=== PATIENT | female | born 1955 | race Caucasian/White ===

== ENCOUNTER 2021-02-18 17:10 | Observation (INO) | payer OTHER ==
[2021-02-18] MEDS ORDERED: ACETAMINOPHEN 500 MG TAB PO PRN (20:34)
[2021-02-18] MEDS ORDERED: carvediloL 3.125 MG TAB PO SCH (21:00)
[2021-02-18] MEDS: CEFTRIAXONE 1 GM/NS 50 ML 1 GM/50 ML BAG IV SCH (21:00)
--- NOTE | 2021-02-18 21:15 | RAD REPORT ---
EXAM DESCRIPTION: RAD - Chest Pa And Lat (2 Views) - 02/18/2021 9:09 pm CLINICAL HISTORY: volume depletion COMPARISON: No comparisons FINDINGS: Lines: None. Lungs: No evidence of edema or pneumonia. Pleural: No significant pleural effusions or pneumothorax. Cardiac: The heart size is within normal limits. Bones: No acute fractures. Other: IMPRESSION: No acute cardiopulmonary disease.
[2021-02-18 21:24] LABS: Absolute Lymphocytes (CBC) 2.2 K/uL (0.7-4.9); Basophils % 0.7 % (0-1.3); Lymphocytes % 29.4 % (15.3-44.8); RBC Red Blood Cell Count 3.84 M/uL (3.86-4.86)
[2021-02-18] MEDS ORDERED: CEFTRIAXONE 1000 MG/VIAL ONE (21:37)
[2021-02-18] MEDS ORDERED: NA CHLORIDE 0.9% 100 ML ONE (21:38)
[2021-02-18] MEDS: FAMOTIDINE 20 MG TAB PO SCH (21:40)
[2021-02-18] MEDS: NA CHLORIDE 0.9% 1,000 ML IV SCH (21:42)
[2021-02-18 21:57] LABS: Albumin 3.8 g/dL (3.4-5.0); Bilirubin Total 0.7 mg/dL (0.2-1.0); Magnesium 1.9 mg/dL (1.8-2.4); Phosphorus 3.2 mg/dL (2.5-4.9); Potassium 3.4 mmol/L (3.5-5.1); Protein, Total 7.3 g/dL (6.4-8.2); Thyroid Stimulating Hormone 0.648 uIU/mL (0.360-3.740)
[2021-02-18 22:56] VITALS: BMI 28.5
[2021-02-18] MEDS ORDERED: POTASSIUM CL SA 10 MEQ TAB PO ONE (23:07)
[2021-02-19 04:05] LABS: Potassium 4.2 mmol/L (3.5-5.1)
[2021-02-19 05:25] LABS: Urine Appearance CLEAR (Clear); Urine Bilirubin NEGATIVE (Negative); Urine Blood NEGATIVE (Negative); Urine Color YELLOW (Yellow); Urine Glucose NEGATIVE (Negative); Urine Protein NEGATIVE (Negative); Urine Specific Gravity <=1.005 (1.005-1.030); Urine Urobilinogen 0.2 mg/dL (0.2-1.0)
[2021-02-19 06:34] LABS: Urine Bacteria <20 /HPF (<20); Urine Mucus 1+ /HPF (NONE SEEN); Urine RBC <5 /HPF (NONE SEEN)
[2021-02-19] MEDS ORDERED: INFLUENZA VACCINE (for 6+ mo) 0.5 ML DOSE IMVAC ONE (08:00)
[2021-02-19] MEDS: NA CHLORIDE 0.9% 1,000 ML IV SCH (08:25)
[2021-02-19] MEDS: FAMOTIDINE 20 MG TAB PO SCH (08:28)
[2021-02-19] MEDS ORDERED: ENOXAPARIN 40 MG/0.4 ML SQ SCH (09:00)
[2021-02-19] MEDS ORDERED: carvediloL 3.125 MG TAB PO SCH (09:00)
[2021-02-19] MEDS: CEFTRIAXONE 1 GM/NS 50 ML 1 GM/50 ML BAG IV SCH (09:12)
--- NOTE | 2021-02-19 10:12 | RAD REPORT ---
EXAM DESCRIPTION: US - Abdomen Exam Complete - 02/19/2021 6:31 am CLINICAL HISTORY: Abdominal pain COMPARISON: Renal Ultrasound-Complete dated 10/18/2019 FINDINGS: No aortic aneurysm. The liver has a homogeneous echotexture. Cyst in the right hepatic lobe measuring approximately 3.5 c m with a few thin internal septations. There is increased through transmission. This is consistent wi th a minimally complicated cyst and is benign. The portal vein is patent. The IVC at the level of the liver is unremarkable. No ascites. Cholelithiasis noted. No pericholecystic fluid identified. No gallbladder wall thickening No biliary ductal dilatation. The pancreas was grossly unremarkable. The right kidney measures 9.8 cm normal echotexture. No hydronephrosis. 9 mm right renal cyst. The left kidney measures 8.2 cm with a normal echotexture. No hydronephrosis. No suspicious masses. The spleen is unremarkable. IMPRESSION: Cholelithiasis without sonographic evidence of acute cholecystitis. Benign liver and rig ht kidney cysts.
[2021-02-19 11:42] VITALS: O2SAT 100
[2021-02-19 11:53] VITALS: BP 124/69; TEMP 97.5
[2021-02-19] MEDS ORDERED: PNEUMOCOCCAL VACCINE 0.5 ML IMVAC ONE (13:00)
--- NOTE | 2021-02-19 16:38 | EKG ---
Test Date: 2021-02-18 Test Time: 21:26:14 Office Support Clerk: RT-O MEASUREMENT RESULTS: Intervals: Rate: 78 NE: 144 QRSD: 72 QT: 368 QTc: 419 Pierre: P: 81 NE: 144 QRS: -6 T: 23 INTERPRETIVE STATEMENTS: Normal sinus rhythm Low voltage QRS Possible Anterolateral infarct, age undetermined Abnormal ECG No previous ECG available for comparison Electronically Signed On 02-19-21 16:35:44 CDT by Ferny Casper
--- NOTE | 2021-02-19 16:41 | HP ---
Date of Admission: 02/18/2021 Chief Complaint: Not feeling good. History Of Present Illness: This is a 65-year-old pleasant female patient who came into office yesterday with her daughter and the patient was prescribed amoxicillin and Flonase nasal spray about 2 weeks ago for sinus infection and she came into office yesterday with complaints of ongoing right ear pain and felt like right ear was plugged up with occasional pain in her right ear. Denies any fever. No expectoration. Has some clear nasal discharge and she started to have nausea and vomiting as of 02/16/2021 and by the time I saw her yesterday she had vomited about 6 to 8 times in last 24 hours. Over the weekend, she also had some strong odor to her urine and she was concerned about bladder infection. Denies any dysuria or hematuria. After she was evaluated at the office, urinalysis was done in the office, which came back abnormal indicating urinary tract infection and we did send her urine for culture and started her on empiric antibiotic Levaquin and nausea medication and instruction given to her and her daughter that if she does not feel any better in 24 hours, then to notify me. So today, the patient's daughter contacted office and notified us that the patient was not feeling any better, so she was asked to come back to see me. After she was evaluated, she was admitted to the hospital. Today, she tells me that she has not had any more nausea, vomiting since she saw me yesterday. No new complaints reported by her. She feels very weak, tired and has very poor appetite, in fact today she did not have anything to eat, but had very small amount of liquids. Allergies: TO CODEINE CAUSING HIVES AND NITROFURANTOIN CAUSING HIVES. Review of Systems: Constitutional: As mentioned above. GI: As mentioned above. Genitourinary: As mentioned above. ENT: As mentioned above. All other systems reviewed and negative. Medications: Takes carvedilol 6.25 mg 2 times a day, atorvastatin 20 mg daily in evening, Caltrate Plus D one tablet by mouth daily, vitamin D3 2000 unit daily, famotidine 20 mg 2 times a day and fluticasone nasal spray 1 spray each nostril 2 times a day and Levaquin 500 mg daily. Past Medical History: Significant for vitamin D deficiency, hypertension, hyperlipidemia, gastroesophageal reflux disease. Past Surgical History: Significant for and reconstructive surgery. Family History: Mother has hypertension and diabetes. Sister with breast cancer. Social History: Negative for smoking. Use of alcohol rarely. Physical Examination: VITAL SIGNS: Temperature 98.7, pulse 91, respiratory rate 20, blood pressure 154/87, height 62 inches, weight 156 pounds. General: Awake, alert, oriented, not in distress. The patient appears weaker than normal not in any respiratory distress. HEENT: Head atraumatic, normocephalic. Conjunctivae nonerythematous. Sclerae white. Mouth: Very minimal erythematous changes in the posterior pharynx, unchanged from yesterday. Ears: Ear canal has small amount of wax, otherwise no other acute abnormality detected. No evidence of any exudate or redness of tympanic membrane. Neck: Supple. No JVD, lymph nodes, bruit, thyromegaly noted. No signs of meningeal irritation. Lungs: Bilateral good equal air entry. Clear to auscultation. No rhonchi. No rales. Heart: Normal heart sounds, no murmur or gallop. Abdomen: Soft, bowel sounds normal. No guarding, rigidity, tenderness, mass, hepatosplenomegaly, distention, or bruit noted. Extremities: No leg edema. No calf tenderness. Skin: No rash, ulcer, cellulitis. Lymphatics: No lymph node enlargement in neck, supraclavicular, infraclavicular region. Neuro: No focal neurological deficit. Power is normal, equal. The patient is awake, alert, oriented. Chest: Unremarkable. External Genitalia: Deferred. Rectal: Deferred. Laboratory Data: White count 7.3, hemoglobin 12, platelets 250. Sodium 135, potassium 3.4, chloride 103, bicarb 27, BUN 12, creatinine 0.9, glucose 91. Liver function tests unremarkable. Lactic acid 1. Procalcitonin less than 0.05. TSH 0.648. COVID-19 test negative. Chest x-ray normal. Impression: 1. Urinary tract infection. 2. Acute pharyngitis. 3. Volume depletion. 4. Hypokalemia. 5. Hypertension. 6. Hyperlipidemia. 7. Vitamin D deficiency. 8. Gastroesophageal reflux disease. Plan: Admit the patient to hospital for further evaluation and management of this problem. The patient is appropriate for inpatient and is expected to spend 2 midnights in hospital. We will correct her electrolyte abnormality by following electrolyte replacement protocol. IV fluid will be started using NS at 75 cc per hour. We will go ahead and start DVT prophylaxis using Lovenox and start IV antibiotics as per order. Urine culture which was done yesterday, result is still pending, we will follow up on that and we will see her tomorrow for followup. Depending on her response to this initial therapy, we will decide further plan of treatment. Details were discussed with the patient and mother. JESSI/FRANCK Voice ID: [id number] MTDD
--- NOTE | 2021-02-20 06:44 | DS ---
Date of Discharge: 02/19/2021 Disposition: Discharged to go home. Physical Examination: HEENT: Unremarkable. Lungs: Clear to auscultation. Heart: Sounds normal. Abdomen: Soft. Bowel sounds normal. No guarding, rigidity, tenderness, or distention. Extremities: No leg edema. Laboratory Data: Sodium 140, potassium 4.2, chloride 109, bicarb 27, BUN 10, creatinine 0.85, glucose 94 this morning. Yesterday; sodium 135, potassium 3.4, chloride 103, bicarb 27, BUN 12, creatinine 0.90, glucose 91. Liver function tests unremarkable. Yesterday; white count was 7.3 with hemoglobin 12 and platelets 250. Abdominal ultrasound shows evidence of gallstones, but no evidence of cholecystitis. Chest x-ray unremarkable. Outpatient urine culture result came back today, it is growing Klebsiella and it is sensitive to Levaquin that the patient was taking on outpatient basis. Hospital Course: This is a 65-year-old female, who was admitted to the hospital with complaints of not feeling good. Please see dictated H and P for more information. After the patient was evaluated in the office, she was admitted to the hospital since she was not improving and had very poor appetite, was not eating or drinking anything hardly at all and she was getting very weak. Day prior to admission, she had lot of nausea and vomiting also. No diarrhea. After she was admitted to the hospital, she was started on IV fluid, hydration and we also started her on IV ceftriaxone. Her workup was unremarkable and she started to tolerate diet very well. This morning, she looks a lot better well, looks like she is back to her normal self, feels a lot better and has no complaints this morning. The patient was discharged to go home in stable condition with following discharge medications and instructions. Discharge Medications And Instructions: 1. Continue all prior home medications including antibiotic Levaquin which was prescribed prior to this admission. 2. Follow up at my office next week on Wednesday, which is 02/24/2021 at 9 a.m. Final Diagnoses: 1. Volume depletion. 2. Urinary tract infection. 3. Acute pharyngitis. 4. Hypertension. 5. Hyperlipidemia. 6. Gallstones without cholecystitis, without obstruction. 7. Hypokalemia. 8. Gastroesophageal reflux disease. JESSI/MODL Voice ID: [id number] Report ID: [id number] KENYATTA
== END 2021-02-19 12:45 | disposition home or self-care (01) ==
LOC: 4TH 19:54 → INTOOBSV 19:54
PROVIDERS: ADMIT Internal Medicine; ATTEND Internal Medicine
DX: N39.0 Urinary tract infection, site not specified (principal); B96.1 Klebsiella pneumoniae [K. pneumoniae] as the cause of diseases classified elsewhere; E86.9 Volume depletion, unspecified; E87.6 Hypokalemia; J02.9 Acute pharyngitis, unspecified; I10 Essential (primary) hypertension; K80.20 Calculus of gallbladder without cholecystitis without obstruction; E78.5 Hyperlipidemia, unspecified; E55.9 Vitamin D deficiency, unspecified; K21.9 Gastro-esophageal reflux disease without esophagitis; Z20.822 Contact with and (suspected) exposure to COVID-19; Z88.6 Allergy status to analgesic agent; Z82.49 Family history of ischemic heart disease and other diseases of the circulatory system; Z83.3 Family history of diabetes mellitus; Z80.3 Family history of malignant neoplasm of breast
CPT/HCPCS: 93005; 87040 ×2; 87088; 85025; 81001; 87086; 80048; 36415 ×2; 83735; 84100; 83605; 84443; 80053; 84145; 71046; 90471; 76700; U0003; G0379; Q2035; J1650; J7030 ×2; J0696; G0378 ×2

== ENCOUNTER 2022-10-04 15:00 | Emergency (ER) | payer OTHER ==
[2022-10-04 16:20] LABS: Absolute Lymphocytes (CBC) 1.8 K/uL (0.7-4.9); Hematocrit 36.2 % (36.0-45.0); MCV 89.6 fL (80-100); MPV 8.1 fL (7.6-11.3); RBC Red Blood Cell Count 4.04 M/uL (3.86-4.86)
[2022-10-04 16:44] LABS: Albumin 3.8 g/dL (3.4-5.0); Potassium 3.9 mEq/L (3.5-5.1); Protein, Total 7.9 g/dL (6.4-8.2)
--- NOTE | 2022-10-04 18:05 | RAD REPORT ---
EXAM DESCRIPTION: CTAbdomen Pelvis W Contrast - 10/04/2022 5:41 pm CLINICAL HISTORY: abdominal pain COMPARISON: No comparisons TECHNIQUE: CT of the abdomen and pelvis was performed with IV contrast. All CT scans are performed using dose optimization technique as appropriate and may include automated exposure control or mA/KV adjustment according to patient size. FINDINGS: Lower chest: No acute abnormality. Liver: Several low-density liver lesions present in the left hepatic lobe that have benign imaging fe atures and almost certainly benign. Biliary: No biliary ductal dilatation. Stomach: No significant focal abnormality. Duodenum: No significant focal abnormality. Pancreas: No significant abnormality. Spleen: No significant abnormality. Adrenal: No suspicious lesions. Kidney/ureter: No hydronephrosis. No renal calculi. Right lower pole renal lesions which are water at tenuation consistent with cysts. Retroperitoneum: No retroperitoneal adenopathy. Normal appendix. Vascular: No aneurysm. Bowel: No significant focal abnormality. Peritoneum: No ascites or free air. Bladder: Grossly unremarkable. Reproductive: No adnexal masses. Bones: No acute fracture. Moderate disc height loss L5-S1. Other: n/a IMPRESSION: No acute intra-abdominal or pelvic finding. Normal appendix. No urinary tract calculi or hydronephrosis.
[2022-10-04] MEDS ORDERED: ONDANSETRON 4 MG/2 ML VIAL ONE (18:12)
[2022-10-04] MEDS ORDERED: NA CHLORIDE 0.9% 1,000 ML ONE (18:13)
[2022-10-04 18:44] LABS: Specific Gravity 1.017 (1.005-1.030); Urine Bacteria 20-50 /HPF (<20); Urine Bilirubin NEGATIVE (Negative); Urine Blood Negative (Negative); Urine Clarity Clear (Clear); Urine Color Yellow (Yellow); Urine Glucose NEGATIVE (Negative); Urine Protein NEGATIVE (Negative); Urine Urobilinogen Normal (Normal)
[2022-10-04] MEDS ORDERED: CEFTRIAXONE 1000 MG/VIAL ONE (19:24)
--- NOTE | 2022-10-04 19:33 | ER ---
Nurse's Notes [facility] Name: Angelia Matta Age: 67 yrs Sex: Female : 1955 Arrival Date: 10/04/2022 Time: 15:00 Bed 16 Private MD: Aris Jimenez C Diagnosis: UTI/ Urinary tract infection, site not specified;Vomiting Presentation: 10/04 15:49 Chief complaint: Patient states: Believes she has a UTI, started having dysuria nj1 , then, on Wednesday she started feeling nauseous along with vomiting and abdominal pain. Coronavirus screen: Vaccine status: Patient reports receiving the 1st dose of the Covid vaccine. Ebola Screen: Patient denies travel to an Ebola-affected area in the 21 days before illness onset. Initial Sepsis Screen: Does the patient meet any 2 criteria? No. Patient's initial sepsis screen is negative. Does the patient have a suspected source of infection? No. Patient's initial sepsis screen is negative. Risk Assessment: Do you want to hurt yourself or someone else? Patient reports no desire to harm self or others. Onset of symptoms was October 01, 2022. 15:49 Method Of Arrival: Ambulatory [facility] 15:49 Acuity: VIOLETTA 3 nj1 Triage Assessment: 18:27 General: Appears in no apparent distress. comfortable. General: Behavior is calm, db cooperative. Pain:. GI: Reports nausea. Historical: - Allergies: 15:56 Codeine; nj1 - PMHx: 15:56 Hypertensive disorder; GERD; Hypercholesterolemia; nj1 - PSHx: 15:56 section; section; Ligation of fallopian tube; nj1 - Immunization history:: Client reports receiving the 1st dose of the Covid vaccine. - Social history:: Smoking status: Patient denies any tobacco usage or history of. Screenin:27 [facility] ED Fall Risk Assessment (Adult) History of falling in the last 3 months, db including since admission No falls in past 3 months (0 pts) Confusion or Disorientation No (0 pts) Intoxicated or Sedated No (0 pts) Impaired Gait No (0 pts) Mobility Assist Device Used No (0 pt) Altered Elimination No (0 pt) Score/Fall Risk Level 0 - 2 = Low Risk Oriented to surroundings, Maintained a safe environment. Abuse screen: Denies threats or abuse. Denies injuries from another. Nutritional screening: No deficits noted. Tuberculosis screening: No symptoms or risk factors identified. Assessment: 18:10 Reassessment: Patient appears in no apparent distress at this time. Patient and/or db family updated on plan of care and expected duration. Pain level reassessed. patient ambulatory to restroom. General: Appears in no apparent distress. comfortable, Behavior is calm, appropriate for age. Vital Signs: 15:49 BP 166 / 99; Pulse 82; Resp 16; Temp 98.9(O); Pulse Ox 98% on R/A; Weight 78.93 kg; nj1 Height 5 ft. 2 in. ; Pain 8/10; 18:15 BP 140 / 81; Pulse 82; Resp 16; Pulse Ox 98% ; db 20:11 BP 145 / 83; Pulse 79; Resp 18; Pulse Ox 92% ; jb4 15:49 Body Mass Index 31.82 (78.93 kg, 157.48 cm) wi1 15:49 Pain Scale: Adult [facility] ED Course: 15:11 Patient arrived in ED. am2 15:11 Aris Jimenez MD is Private Physician. am2 15:33 [facility] jmm 15:33 Roman Etienne MD is Attending Physician. [facility] 15:56 Triage completed. nj1 15:58 Arm band placed on right wrist. nj1 16:10 CBC with Diff Sent. bc6 16:10 CMP Sent. bc6 16:10 Lipase Sent. bc6 16:10 Inserted saline lock: 22 gauge in left. bc6 17:43 CT Abd/Pelvis - IV Contrast Only In Process Unspecified. EDMS 18:26 Marta Gonzalez, RN is Primary Nurse. db 18:27 Patient has correct armband on for positive identification. Call light in reach. Side db rails up X 1. Warm blanket given. 20:11 No provider procedures requiring assistance completed. IV discontinued, intact, jb4 bleeding controlled, No redness/swelling at site. Pressure dressing applied. Administered Medications: 18:15 Drug: NS 0.9% IV 1000 ml Route: IV; Rate: 1 bolus; Site: left hand; db 18:15 Drug: Ondansetron IVP 4 mg Route: IVP; Site: left hand; db 19:50 Drug: Rocephin IV 1 grams Route: IV; Rate: calculated rate; Site: left hand; jb4 Medication: 20:11 VIS not applicable for this client. jb4 Outcome: 19:32 Discharge ordered by . jordy 20:11 Discharged to home via wheelchair, with family. jb4 20:11 Condition: stable 20:11 Discharge instructions given to patient, Instructed on discharge instructions, follow up and referral plans. medication usage, Demonstrated understanding of instructions, follow-up care, medications, Prescriptions given X 2. 20:12 Patient left the ED. jb4 Signatures: Dispatcher [employer] EDMS José Luis Holman PA PA jmm Bryson, James, RN RN jb4 Berta Casas am2 Marta Gonzalez, RN RN db Madonna Spears6 Mar Grover RN RN nj1
--- NOTE | 2022-10-04 19:33 | EDPHYS ---
Physician Documentation [facility] Name: Angelia Matta Age: 67 yrs Sex: Female : 1955 Arrival Date: 10/04/2022 Time: 15:00 Bed 16 Private MD: Aris Jimenez C ED Physician Roman Etienne HPI: 10/04 15:53 This 67 yrs old Female presents to ER via Ambulatory with complaints of Urinary jmm Problem, Nausea/Vomiting. 15:53 The patient presents with abdominal pain. Onset: The symptoms/episode began/occurred jmm gradually. The symptoms do not radiate. Associated signs and symptoms: Pertinent negatives: fever. Associated signs and symptoms: Pertinent positives: dysuria. The symptoms are described as achy. Modifying factors: The symptoms are alleviated by nothing, the symptoms are aggravated by nothing. Historical: - Allergies: 15:56 Codeine; nj1 - PMHx: 15:56 Hypertensive disorder; GERD; Hypercholesterolemia; nj1 - PSHx: 15:56 section; section; Ligation of fallopian tube; nj1 - Immunization history:: Client reports receiving the 1st dose of the Covid vaccine. - Social history:: Smoking status: Patient denies any tobacco usage or history of. ROS: 15:53 Constitutional: Negative for fever, chills, and weight loss, Cardiovascular: Negative jmm for chest pain, palpitations, and edema, Respiratory: Negative for shortness of breath, cough, wheezing, and pleuritic chest pain. 15:53 Abdomen/GI: Positive for abdominal pain. 15:53 : Positive for urinary symptoms. 15:53 All other systems are negative. Exam: 15:53 Constitutional: This is a well developed, well nourished patient who is awake, alert, jmm and in no acute distress. Head/Face: atraumatic. Eyes: EOMI, no conjunctival erythema appreciated ENT: Moist Mucus Membranes Neck: Trachea midline, Supple Chest/axilla: Normal chest wall appearance and motion. Cardiovascular: Regular rate and rhythm. No edema appreciated Respiratory: Normal respirations, no respiratory distress appreciated Abdomen/GI: Non distended Back: Normal ROM Skin: General appearance color normal MS/ Extremity: Moves all extremities, no obvious deformities appreciated, no edema noted to the lower extremities Neuro: Awake and alert Psych: Behavior is normal, Mood is normal, Patient is cooperative and pleasant Vital Signs: 15:49 BP 166 / 99; Pulse 82; Resp 16; Temp 98.9(O); Pulse Ox 98% on R/A; Weight 78.93 kg; nj1 Height 5 ft. 2 in. ; Pain 8/10; 18:15 BP 140 / 81; Pulse 82; Resp 16; Pulse Ox 98% ; db 20:11 BP 145 / 83; Pulse 79; Resp 18; Pulse Ox 92% ; jb4 15:49 Body Mass Index 31.82 (78.93 kg, 157.48 cm) il1 15:49 Pain Scale: Adult nj1 MDM: 15:53 Patient medically screened. [facility] 19:31 Differential diagnosis: Cholelithiasis, diverticulitis, gastritis, non-specific abd [facility] pain, pancreatitis, Pyelonephritis. Data reviewed: vital signs, nurses notes, lab test result(s), radiologic studies, CT scan. Consideration of Admission/Observation Escalation of care including admission/observation considered. I considered the following discharge prescriptions or medication management in the emergency department Medications were administered in the Emergency Department. See MAR. Counseling: I had a detailed discussion with the patient and/or guardian regarding: the historical points, exam findings, and any diagnostic results supporting the discharge/admit diagnosis, lab results, radiology results, the need for outpatient follow up, to return to the emergency department if symptoms worsen or persist or if there are any questions or concerns that arise at home. 10/04 15:53 Order name: CBC with Diff; Complete Time: 16:28 [facility] 10/04 15:53 Order name: CMP; Complete Time: 16:45 [facility] 10/04 15:53 Order name: Lipase; Complete Time: 16:45 [facility] 10/04 17:55 Order name: Urinalysis w/ reflexes; Complete Time: 18:50 [facility] 10/04 18:50 Order name: Urine Culture [facility] 10/04 16:45 Order name: CT Abd/Pelvis - IV Contrast Only; Complete Time: 18:06 [facility] 10/04 15:53 Order name: IV Saline Lock; Complete Time: 16:10 [facility] 10/04 15:53 Order name: Labs collected and sent; Complete Time: 16:10 [facility] Administered Medications: 18:15 Drug: NS 0.9% IV 1000 ml Route: IV; Rate: 1 bolus; Site: left hand; db 18:15 Drug: Ondansetron IVP 4 mg Route: IVP; Site: left hand; db 19:50 Drug: Rocephin IV 1 grams Route: IV; Rate: calculated rate; Site: left hand; jb4 Disposition Summary: 10/04/22 19:32 Discharge Ordered Location: Home [facility] Condition: Stable [facility] Diagnosis - UTI/ Urinary tract infection, site not specified jm - Vomiting [facility] Followup: [facility] - With: Private Physician - When: 2 - 3 days - Reason: Recheck today's complaints, Continuance of care, Re-evaluation by your physician Discharge Instructions: - Discharge Summary Sheet [facility] - Urinary Tract Infection, Adult jm - Vomiting, Adult [facility] Forms: - Medication Reconciliation Form [facility] - Thank You Letter [facility] - Antibiotic Education [facility] - Prescription Opioid Use [facility] Prescriptions: - ondansetron 4 mg Oral Tablet,disintegrating - take 1 tablet by ORAL route every 4-6 hours As needed; 30 tablet; Refills: 0, [facility] Product Selection Permitted - cefpodoxime 200 mg Oral Tablet - take 1 tablet by ORAL route every 12 hours for 10 days with food; 20 tablet; [facility] Refills: 0, Product Selection Permitted Signatures: Dispatcher [employer] EDJosé Luis Abrams PA PA jmm Bryson, James RN RN jb4 Marta Gonzalez, RN RN db Mar Grover RN RN nj1
[2022-10-04 20:53] VITALS: TEMP 98.9
[2022-10-04 20:58] VITALS: BP 145/83; O2SAT 92
== END 2022-10-04 20:12 | disposition home or self-care (01) ==
LOC: ER 15:00
DX: N39.0 Urinary tract infection, site not specified (principal); I10 Essential (primary) hypertension; E78.00 Pure hypercholesterolemia, unspecified; Z88.5 Allergy status to narcotic agent
CPT/HCPCS: 87088; 85025; 81001; 87086; 36415; 83690; 80053; 74177; 96375; 96374; 99284; Q9967; J2405; J7030; J0696